=== PATIENT | male | born 1990 | race Caucasian/White ===

== ENCOUNTER 2024-10-28 20:42 | Inpatient (IN) | payer SELFPAY ==
[2024-10-28 20:44] VITALS: BP 107/86; PULSE 134; RESP 18; TEMP 36.4; O2SAT 96; BMI 24.2
--- NOTE | 2024-10-28 21:34 | EDS_ITS ---
HPI HPI - GI History of Present Illness Chief Complaint: Nausea/Vomiting/Diarrhea Informant: patient and spouse/S.O. Narrative Narrative: 34-year-old male has had diarrhea that started yesterday followed by nausea and vomiting today and some low back discomfort, but the symptoms have progressed to the point where he is unable to keep any fluids down and has not urinated today at all, evaluated here 2129. Last urinated last night he states. Subjective fevers but unclear if he had real fevers or not. Sick contacts children with some vomiting and diarrhea this past week but they were not as sick as him. No travel out of the area or suspicious food intake. No recent antibiotics for anything. No history of any abdominal surgeries in the past. PFSH PFSH Medical History no medical history no medical history Home Medications ?Medication ?Instructions ?Recorded ?Last Taken ?Type NK 10/28/24 Unknown History Allergy/AdvReac Type Severity Reaction Status Date / Time No Known Allergies Allergy Verified 10/28/24 20:44 Surgical History no surgical history no surgical history Social History Smoking Status: Unknown if ever smoked ROS ROS ED Constitutional Constitutional ED: Reports chills, fever(s), malaise and subjective Eyes Eyes: Denies change in vision or diplopia ENT ENT ED: Denies rhinorrhea or sore throat Cardiovascular Cardiovascular: Denies chest pain or palpitations Respiratory/Chest Respiratory/Chest: Denies cough or dyspnea Gastrointestinal Gastrointestinal: Reports diarrhea, nausea and vomiting; Denies abdominal pain Genitourinary Genitourinary ED: Denies dysuria or hematuria Musculoskeletal Musculoskeletal: Reports back pain; Denies neck pain Integumentary Denies abscess or rash Neurologic Neurologic: Denies headache(s), paresthesias or weakness EXAM Physical Exam Const Vital Signs: 10/28/24 20:44 Temperature 97.6 F L Temperature Source Oral Pulse Rate 134 H Respiratory Rate 18 Blood Pressure 107/86 H Blood Pressure Mean 93 Pulse Ox 96 Oxygen Delivery Method Room Air Positive well nourished and well developed Constitutional Narrative: Appears ill, no distress General Appearance ED: well developed HEENT Reports dry mucous membranes normocephalic and atraumatic Mouth ED: Yes dry mucous membranes Mouth: dry mucous membranes Eyes PERRL and EOMs intact bilaterally Neck full ROM and supple Resp normal respiratory effort and clear to auscultation bilaterally Cardio regular rate, regular rhythm and no murmurs Rate: tachycardic GI non-tender and non-distended Auscultation: normoactive bowel sounds Palpation: soft Back/Spine no CVA tenderness General Back: other FROM Extremity normal to inspection General Extremety ED: Negative for edema, pulses abnormal or tenderness General Extremity: Negative for edema or pulses abnormal Neuro oriented x3, CN's II-XII intact bilaterally and no sensory deficits noted Sensorium / Orientation: awake and alert Motor Exam: strength 5/5 throughout Skin no rashes or lesions noted and no wounds MDM MDM MDM Narrative Medical decision making narrative: Obtain labs will be treated for symptoms given IV fluids. Is feeling better and wants to drink fluids afterwards, but reviewing the labs I am concerned. He has acute renal failure with a 10:1 ratio ordered last, suggesting this is renal in nature and not dehydration/prerenal, although clinically he also is indeed dehydrated. Therefore this is less likely to be hemolytic uremic syndrome. But given this although we do not have old numbers, I think he should be admitted in case it is related to this infection. He has not been able to provide us with the diarrhea specimen yet as he went here before nursing told him we wanted a specimen. History & Record Review Additional record(s) reviewed:: No prior records Lab Data Attestation: I reviewed the patient's lab results. Labs: Laboratory Results - last 24 hr 10/28/24 21:40 WBC 12.8 H RBC 6.30 H Hgb 19.0 H* Hct 56.5 H MCV 89.7 MCH 30.2 MCHC 33.6 RDW Std Deviation 42.3 RDW Coeff of Mazin 12.9 Plt Count 276 MPV 9.6 Immature Gran % (Auto) 0.400 Neut % (Auto) 88.1 H Lymph % (Auto) 1.7 L [place] % (Auto) 9.2 Eos % (Auto) 0.2 Baso % (Auto) 0.4 Absolute Neuts (auto) 11.3 H Absolute Lymphs (auto) 0.22 L Nucleated RBC % 0 Differential Comment SCANNED Diff Path Review May foll Sodium 135 L Potassium 4.5 Chloride 103 Carbon Dioxide 21.0 Anion Gap 11 BUN 20 H Creatinine 2.94 H Estim Creat Clear Calc 38.49 Est GFR (MDRD) Af Amer 32 L Est GFR (MDRD) Non-Af 26 L BUN/Creatinine Ratio 6.8 L Glucose 176 H Calcium 10.4 H Total Bilirubin 1.30 H AST 19 ALT 35 Alkaline Phosphatase 82 Total Protein 9.0 H Albumin 5.2 H Globulin 3.8 Albumin/Globulin Ratio 1.4 Discharge Plan Triage Chief Complaint: Nausea/Vomiting/Diarrhea ED Provider: Pool Moore Dx/Rx/DC Orders Clinical Impression: Acute renal failure, Gastroenteritis, Acute dehydration Prescriptions: No Action NK Primary Care Provider: Care Physician,No Primary Referrals: Care Physician,No Primary [Primary Care Provider] - Print Language: Luxembourgish Disposition Disposition: [facility]
[2024-10-28] MEDS: Ondansetron 4 MG/2 ML Vial IV (21:43)
[2024-10-28] MEDS: 0.9% Normal Saline (1000mL) 1,000 ML 999 ML IV (21:43)
[2024-10-28 21:45] LABS: Absolute Lymphocyte Count 0.22 X10^3/uL (0.83-4.51); Absolute Neutrophil Count 11.3 X10^3/uL (2.0-7.7); Basophil# 0.05 X10^3/uL; Basophil% 0.4 % (0-1); Eosinophil# 0.03 X10^3/uL; Eosinophils% 0.2 % (0-5); Lymphocyte # 0.22 X10^3/ul (0.83-4.51); Lymphocyte % 1.7 % (19-41); Mean Corp Hgb Conc 33.6 g/dL (32-36); Mean Corpuscular Hgb 30.2 pg (27.0-32.0); Mean Corpuscular Volume 89.7 fL (80-94); Mean Platelet Vol. 9.6 fl (6.2-12.0); Monocyte# 1.18 X10^3/uL; Monocyte% 9.2 % (0-10); NRBC Flagged by Analyzer 0 % (0-5); Neutrophil # 11.26 X10^3/uL (2.7-7.7); Neutrophil % 88.1 % (47-70); POSITIVE DIFFERENTIAL YES; Platelet Count 276 K/mm3 (150-450); RBC Distribution Width CV 12.9 % (11.6-14.6); RBC Distribution Width SD 42.3 fl (35.1-43.9); White Blood Count 12.8 K/mm3 (4.4-11.0)
[2024-10-28 21:50] LABS: Hematocrit 56.5 % (40-54)
[2024-10-28 21:51] LABS: Differential Indicated SCAN CRITERIA MET
[2024-10-28 22:04] LABS: ALB/GLOB Ratio 1.4 RATIO (0.9-2.4); AST(SGOT) 19 U/L (15-37); Alanine Aminotransfer ALT/SGPT 35 U/L (16-61); Albumin, Serum 5.2 g/dL (3.2-5.0); Alkaline Phosphatase 82 U/L (45-117); Anion Gap 11 (5-15); BUN 20 mg/dL (7-18); BUN/Creat Ratio 6.8 RATIO (10-20); Calcium,Total 10.4 mg/dL (8.5-10.1); Chloride 103 mmol/L (98-107); Creatinine, Serum 2.94 mg/dL (0.70-1.30); EST Glomerular Filtration Rate 26 mL/min (>60); Est Glom Filt Rate - Afr Amer 32 mL/min (>60); Estimated Creatinine Clearance 38.49 ml/min; Globulin 3.8 g/dL (2.2-4.2); Glucose 176 mg/dL (74-106); Potassium 4.5 mmol/L (3.5-5.1); Sodium Level 135 mmol/L (136-145)
[2024-10-28 22:15] LABS: Differential Comment SCANNED
--- NOTE | 2024-10-28 22:59 | HP.PCM.HOS_ITS ---
HPI - General General Date of Admission: 10/28/24 Date of Service: 10/28/24 Chief Complaint: Intractable nausea and vomiting/diarrhea HPI Narrative SHAY GRADY, is a 34 M who presented to the emergency department [facility] on 10/28/2024 with a chief complaint of intractable nausea vomiting and diarrhea. He states his symptoms started today this morning. He states since this morning he has not been able to keep down anything and has vomited profusely and had watery stools all day long. He does complain of some of some back pain but denies any significant abdominal pain at this time. He does states that his girlfriend's daughter has been ill with similar symptoms as well. Vital signs on presentation showed temperature 97.6, heart rate 134, blood pressure 107/86, respiratory rate 18 and oxygen saturation is 96% on room air. Chemistry panel shows a leukocytosis that is mild with a white count of 12.8 and a left shift with an 88.1% neutrophilia and a lymphopenia. Hemoglobin is elevated at 19.0. Platelets are normal. Chemistry panel shows a sodium of 135 BUN of 20, serum creatinine of 2.94 with unknown baseline, hyperglycemia with a blood sugar of 176, calcium of 10.4, and a mildly elevated bilirubin at 1.3. Clinically he appears to be markedly dehydrated. Highly suspect viral gastroenteritis but given severe dehydration will admit for IV fluids and antiemetics. [facility] Medical History no medical history no medical history Home Medications ?Medication ?Instructions ?Recorded ?Last Taken ?Type NK 10/28/24 Unknown History Allergy/AdvReac Type Severity Reaction Status Date / Time No Known Allergies Allergy Verified 10/28/24 20:44 no significant family history Surgical History no surgical history no surgical history Social History (Updated 10/29/24 @ 01:[address] Antonia Mckee, DO) household members: significant other housing: house Smoking Status: Never smoker alcohol intake: current alcohol intake frequency: a few times a week substance use type: does not use ROS Constitutional Constitutional: Reports anorexia and weakness; Denies change in weight, chills, fatigue, fever(s), malaise, night sweats or other Eyes Eyes: Denies blurry vision, change in eye color, change in vision, discharge from eye(s), double vision, erythema, eye pain, loss of vision or other ENT HEENT: Denies abnormal hearing, dysphagia, ear pain, epistaxis, headache(s), hearing loss, nasal congestion, nasal discharge, post nasal drip, sinus pressure, sore throat or other Cardiovascular Cardiovascular: Denies chest pain, claudication, dyspnea on exertion, edema, lightheadedness, orthopnea, palpitations, paroxysmal nocturnal dyspnea, rapid heart rate, syncope or other Respiratory/Chest Respiratory/Chest: Denies cough, dyspnea, excessive phlegm production, hemoptysis, productive cough, shortness of breath at rest, shortness of breath with exertion, wheezing or other Gastrointestinal Gastrointestinal: Reports diarrhea, nausea and vomiting; Denies abdominal pain, coffee ground emesis, constipation, dyspepsia, hematemesis, hematochezia, loose stools, melena or other Genitourinary Genitourinary: Reports other Details: Decreased urine output ; Denies burning urination, difficulty urinating, dysuria, hematuria, nocturia, urinary frequency, urinary hesitancy, urinary incontinence or urinary urgency Musculoskeletal Musculoskeletal: Reports back pain; Denies arthralgias, joint pain, joint stiffness, joint swelling, myalgias, neck pain or other Neurologic Neurologic: Denies abnormal gait, abnormal speech, confusion, disequilibrium, dizziness, focal weakness, headache(s), numbness, paresthesias, seizure-like activity, seizures, syncope, tingling, tremor(s) or other Psychiatric Psychiatric: Denies anxiety, depression, homicidal ideation, suicidal ideation or other Endocrine Endocrinology: Denies change in body appearance, cold intolerance, excessive sweating, heat intolerance, polydipsia, polyuria or other Hematologic/Lymphatic Hematologic/Lymphatic: Denies anemia, easy bleeding, easy bruising, lymphadenopathy or other Allergic/Immunologic Allergic/Immunologic: Denies rhinitis, hives, eczemia, asthma or other Vital Signs Vital Signs Vital Signs: 10/28/24 20:44 Temperature 97.6 F L Temperature Source Oral Pulse Rate 134 H Respiratory Rate 18 Blood Pressure 107/86 H Blood Pressure Mean 93 Pulse Ox 96 Oxygen Delivery Method Room Air Weight Weight: 81.057 kg Body Mass Index (BMI) 24.2 Physical Exam Const alert, oriented x3, no apparent distress and average body habitus Constitutional Narrative: Thin, dehydrated appearing, white male, lying in bed, appears mildly uncomfortable but not toxic HEENT normocephalic and head/scalp atraumatic HEENT Narrative: Mucous membranes are markedly dry, Mallampati is 2, no thrush Resp normal respiratory effort, no retractions, no use of accessory muscles and clear to auscultation bilaterally Auscultation: Negative for rales, rhonchi or wheezes Cardio regular rhythm, S1 normal heart sound, S2 normal heart sound, no murmurs, no rub, no gallops and no clicks Cardio Narrative: Sinus tachycardia GI GI Narrative: Mild tenderness diffusely, abdomen is soft and nondistended, bowel sounds are hyperactive Extremity no clubbing, cyanosis or edema Extremity Narrative: Pedal and radial pulses are 2+ Neuro oriented x3, moves all extremities and no focal motor deficits Speech: speech normal Psych Psych Narrative: Affect is slightly flat but eye contact is good and patient interacts and answers questions appropriately Results Lab / Micro Data 10/28/24 21:40 10/28/24 21:40 Labs: Laboratory Results - last 24 hr 10/28/24 21:40: WBC 12.8 H, RBC 6.30 H, Hgb 19.0 H*, Hct 56.5 H, MCV 89.7, MCH 30.2, MCHC 33.6, RDW Std Deviation 42.3, RDW Coeff of Mazin 12.9, Plt Count 276, MPV 9.6, Immature Gran % (Auto) 0.400, Neut % (Auto) 88.1 H, Lymph % (Auto) 1.7 L, [place] % (Auto) 9.2, Eos % (Auto) 0.2, Baso % (Auto) 0.4, Absolute Neuts (auto) 11.3 H, Absolute Lymphs (auto) 0.22 L, Nucleated RBC % 0, Differential Comment SCANNED, Diff Path Review February, Sodium 135 L, Potassium 4.5, Chloride 103, Carbon Dioxide 21.0, Anion Gap 11, BUN 20 H, Creatinine 2.94 H, Estim Creat Clear Calc 38.49, Est GFR (MDRD) Af Amer 32 L, Est GFR (MDRD) Non-Af 26 L, B UN/Creatinine Ratio 6.8 L, Glucose 176 H, Calcium 10.4 H, Total Bilirubin 1.30 H , AST 19, ALT 35, Alkaline Phosphatase 82, Total Protein 9.0 H, Albumin 5.2 H, Globulin 3.8, Albumin/Globulin Ratio 1.4 Assessment & Plan Assessment/Plan (1) Acute dehydration: (2) Gastroenteritis: (3) Elevated serum creatinine: PLAN: Plan Intractable nausea vomiting secondary to suspected viral gastroenteritis -Stool studies pending for enteric panel -C. difficile pending -Stool lactoferrin pending -Aggressive IV fluids -Antiemetics as needed -As needed pain medication -Clear liquid diet and advance as tolerated Elevated serum creatinine secondary to acute dehydration -Serum creatinine 2.94 on presentation -Baseline is unknown -Highly suspect patient has MODESTO -Decreased urine output -Aggressive IV fluids -Avoid nephrotoxins -UA and urine sodium is pending -If these are not consistent with prerenal azotemia will order further workup and Vasques catheter placement Erythrocytosis -Highly suspect related to dehydration -Repeat in a.m. Hypocalcemia -Highly suspect related to dehydration -Repeat in a.m. Tachycardia -Suspect related to volume depletion -Seems to be trending down with IV fluids -continue to monitor Alcohol abuse -Patient does not drink daily but states he drinks heavy on weekends -Monitor clinically -Patient denies ever having withdrawal DVT prophylaxis -subcu heparin twice daily CODE STATUS Full code Charges/Coding Visit Charges Inpatient E&M: 59109 Init Hosp L2
[2024-10-29 00:01] VITALS: BMI 24.0
[2024-10-29 00:07] VITALS: BP 152/87; PULSE 104; RESP 16; TEMP 36.9; O2SAT 98
[2024-10-29] MEDS: 0.9% Normal Saline (1000mL) 1,000 ML 200 ML IV ×3 (00:11→10:27)
[2024-10-29] MEDS: Acetaminophen 325 MG Tablet 650 MG PO ×3 (00:15→21:46)
[2024-10-29 02:03] VITALS: BMI 24.0
[2024-10-29 03:41] VITALS: BP 128/84; PULSE 86; RESP 17; TEMP 37; O2SAT 98
[2024-10-29 03:53] LABS: Mucous, Urine 0 SEEN /hpf (<or=2+)
[2024-10-29 03:59] LABS: Color, Urine Yellow (Yellow); Glucose, Dipstick Normal (Normal); Ketone-Dipstick 5 mg/dl (Negative); Leukocyte Esterase-Dipstick 25 /ul (Negative); Nitrite-Dipstick Negative (Negative); Occult Blood-Urine 10 /ul (Negative); Protein-Dipstick 100 mg/dl (Negative); Urine Clarity Cloudy (Clear); Urine Urobilinogen 1 mg/dl (Normal)
[2024-10-29 04:08] LABS: Urine Sodium 22 mmol/L (Not Establ.)
[2024-10-29 04:12] LABS: Bacteria RARE /hpf (None Seen); Red Blood Cells-Urine 0-5 SEEN /hpf (0-5); Squamous Epithelial Cells - UA 0 SEEN /hpf (0-5); Urine Bilirubin Dipstick 1 mg/dL (Negative); White Blood Cells 5-10 SEEN /hpf (0-5)
[2024-10-29 04:13] LABS: Calcium Oxalate Crystals Ur 1+ /hpf (<or=2+); Hyaline Cast 10-25 SEEN /lpf (0-5)
[2024-10-29 06:29] LABS: Absolute Lymphocyte Count 0.31 X10^3/uL (0.83-4.51); Absolute Neutrophil Count 9.2 X10^3/uL (2.0-7.7); Basophil# 0.02 X10^3/uL; Basophil% 0.2 % (0-1); Eosinophil# 0.01 X10^3/uL; Eosinophils% 0.1 % (0-5); Hematocrit 44.8 % (40-54); Hemoglobin 15.4 g/dL (13.0-16.5); Lymphocyte # 0.31 X10^3/ul (0.83-4.51); Mean Corp Hgb Conc 34.4 g/dL (32-36); Mean Corpuscular Hgb 30.7 pg (27.0-32.0); Mean Corpuscular Volume 89.4 fL (80-94); Mean Platelet Vol. 9.8 fl (6.2-12.0); Monocyte# 0.65 X10^3/uL; Monocyte% 6.4 % (0-10); NRBC Flagged by Analyzer 0 % (0-5); Neutrophil # 9.19 X10^3/uL (2.7-7.7); POSITIVE DIFFERENTIAL YES; Platelet Count 219 K/mm3 (150-450); RBC Distribution Width CV 13.2 % (11.6-14.6); RBC Distribution Width SD 42.8 fl (35.1-43.9); Red Blood Count 5.01 M/mm3 (4.6-6.2); White Blood Count 10.2 K/mm3 (4.4-11.0)
[2024-10-29 07:06] LABS: ALB/GLOB Ratio 1.1 RATIO (0.9-2.4); AST(SGOT) 23 U/L (15-37); Alanine Aminotransfer ALT/SGPT 32 U/L (16-61); Albumin, Serum 3.5 g/dL (3.2-5.0); Alkaline Phosphatase 53 U/L (45-117); Anion Gap 8 (5-15); BUN 25 mg/dL (7-18); Chloride 106 mmol/L (98-107); Creatinine, Serum 2.28 mg/dL (0.70-1.30); EST Glomerular Filtration Rate 35 mL/min (>60); Est Glom Filt Rate - Afr Amer 42 mL/min (>60); Estimated Creatinine Clearance 49.63 ml/min; Globulin 3.2 g/dL (2.2-4.2); Glucose 135 mg/dL (74-106); Magnesium 1.8 mg/dL (1.6-2.6); Phosphorus 4.6 mg/dL (2.5-4.9); Potassium 4.5 mmol/L (3.5-5.1); Protein, Total 6.7 g/dL (6.4-8.2); Sodium Level 134 mmol/L (136-145)
[2024-10-29 07:59] VITALS: BP 129/77; PULSE 79; RESP 18; TEMP 37.1; O2SAT 95
[2024-10-29 13:14] LABS: Pathologist Review Reviewed
--- NOTE | 2024-10-29 13:48 | CASEMGMT ---
Social Work- SW met with pt to discuss self pay status. SW introduced self and role. Pt girlfriend present; pt agreeable to girlfriend remaining in the room. Pt reports that he recently moved to [email or web address] from [place] approximately one month ago. Pt reportedly had RICARDA prior to moving, but did not renew andtherefore there was a lapse in coverage. Pt is working now. Pt met with Johnathan Serrano,via telephone earlier today and does not currently qulaify for RICARDA due to new job. Pt will qualify for HCAP. SW had pt sign HCAP form and emailed it to [employer]. SW also provided printed information on [place] and [employer] card. Pt reports no other needs at this time. BERE Kennedy
--- NOTE | 2024-10-29 13:55 | PN_ITS ---
Subjective Subjective Patient seen and examined. His girlfriend was by his bedside. He said his diarrhea was improving as well as the nausea and vomiting. Review of systems otherwise negative. He did test positive for norovirus. Objective Data Objective Data Vital Signs: Vital Signs Temp Pulse Resp BP Pulse Ox O2 Del Method 98.8 F 79 18 129/77 H 95 Room Air 10/29/24 07:59 10/29/24 07:59 10/29/24 07:59 10/29/24 07:59 10/29/24 07:59 10/29/24 08:00 Oxygen Delivery Method Room Air Weight: 176 lb 12.972 oz Body Mass Index (BMI) 24.0 Intake & Output: Intake and Output for Last 24 Hours 10/27/24 10/28/24 10/29/24 23:59 23:59 23:59 Intake Total 1000 / 1000 2240 / 2240 Output Total 300 / 300 Balance 1000 / 1000 1940 / 1940 Lab / Micro Data 10/29/24 06:12 10/29/24 06:12 Labs: Laboratory Results - last 24 hr 10/28/24 21:40: WBC 12.8 H, RBC 6.30 H, Hgb 19.0 H*, Hct 56.5 H, MCV 89.7, MCH 30.2, MCHC 33.6, RDW Std Deviation 42.3, RDW Coeff of Mazin 12.9, Plt Count 276, MPV 9.6, Immature Gran % (Auto) 0.400, Neut % (Auto) 88.1 H, Lymph % (Auto) 1.7 L, [place] % (Auto) 9.2, Eos % (Auto) 0.2, Baso % (Auto) 0.4, Absolute Neuts (auto) 11.3 H, Absolute Lymphs (auto) 0.22 L, Nucleated RBC % 0, Differential Comment SCANNED, Diff Path Review Reviewed, Sodium 135 L, Potassium 4.5, Chloride 103, Carbon Dioxide 21.0, Anion Gap 11, BUN 20 H, Creatinine 2.94 H, Estim Creat Clear Calc 38.49, Est GFR (MDRD) Af Amer 32 L, Est GFR (MDRD) Non-Af 26 L, B UN/Creatinine Ratio 6.8 L, Glucose 176 H, Calcium 10.4 H, Total Bilirubin 1.30 H , AST 19, ALT 35, Alkaline Phosphatase 82, Total Protein 9.0 H, Albumin 5.2 H, Globulin 3.8, Albumin/Globulin Ratio 1.4 10/29/24 03:39: Urine Color Yellow, Urine Clarity Cloudy, Urine pH 5.0, Ur Specific [place] 1.030, Urine Protein 100 H, Urine Glucose (UA) Normal, Urine Ketones 5 H, Urine Occult Blood 10 H, Urine Nitrite Negative, Urine Bilirubin 1 H, Urine Urobilinogen 1 H, Ur Leukocyte Esterase 25 H, Urine RBC 0-5 SEEN, Urine WBC 5-10 SEEN, Ur Squamous Epith Cells 0 SEEN, Calcium Oxalate Crystal 1+, Urine Bacteria RARE, Hyaline Casts 10-25 SEEN, Urine Mucus 0 SEEN, Ur Random Sodium 22 10/29/24 06:12: WBC 10.2, RBC 5.01, Hgb 15.4, Hct 44.8, MCV 89.4, MCH 30.7, MCHC 34.4, RDW Std Deviation 42.8, RDW Coeff of Mazin 13.2, Plt Count 219, MPV 9.8, Immature Gran % (Auto) 0.300, Neut % (Auto) 90.0 H, Lymph % (Auto) 3.0 L, [place] % (Auto) 6.4, Eos % (Auto) 0.1, Baso % (Auto) 0.2, Absolute Neuts (auto) 9.2 H, A bsolute Lymphs (auto) 0.31 L, Nucleated RBC % 0, Sodium 134 L, Potassium 4.5, Chloride 106, Carbon Dioxide 20.0 L, Anion Gap 8, BUN 25 H, Creatinine 2.28 H, Estim Creat Clear Calc 49.63, Est GFR (MDRD) Af Amer 42 L, Est GFR (MDRD) Non-Af 35 L, BUN/Creatinine Ratio 11.0, Glucose 135 H, Calcium 8.0 L, Phosphorus 4.6, Magnesium 1.8, Total Bilirubin 0.70, AST 23, ALT 32, Alkaline Phosphatase 53, Total Protein 6.7, Albumin 3.5, Globulin 3.2, Albumin/Globulin Ratio 1.1 Micro: Microbiology 10/29/24 03:39 Stool Stool Lactoferrin - Final 10/29/24 03:39 Stool Enteric Bacteriology - Final Norovirus 10/29/24 03:39 Stool Clostridioides difficile (PCR) - Final Physical Exam Const alert, oriented x3, no apparent distress and well nourished General Appearance: cooperative HEENT normocephalic, head/scalp atraumatic, moist oral mucous membranes and oropharynx normal Eyes PERRL and EOMs intact bilaterally Neck no lymphadenopathy, supple and no JVD Lymph Lymphatic: no lymphadenopathy noted and no lymphedema noted Resp normal respiratory effort, normal air movement and clear to auscultation bilaterally Cardio regular rate, regular rhythm, S1 normal heart sound, S2 normal heart sound and no murmurs GI normal to inspection, nondistended, normoactive bowel sounds, soft to palpation, non-tender and non-distended Extremity normal capillary refill, no clubbing, cyanosis or edema and no calf tenderness General Extremity: no tenderness to palpation of joints or extremities Skin General Skin Exam: no breakdown Neuro CN's II-XII intact bilaterally, no focal motor deficits and no sensory deficits noted Motor Exam: strength 5/5 throughout and general weakness Psych thought process normal, cooperative and affect normal Appearance: appropriate Assessment & Plan Assessment/Plan (1) Gastroenteritis: (2) Acute dehydration: (3) Elevated serum creatinine: PLAN: Plan #Acute gastroenteritis due to norovirus infection * he says the diarrhea is improving as well as the nausea and vomiting * Stool for enteric panel came back positive for norovirus C. difficile was negative. Continue supportive treatment with hydration * With IV fluids * Patient also admits to smoking marijuana though he states he is cutting down. Patient counseled on marijuana can contribute to vomiting also. * IV zofran prn * advance diet as tolerated * #MODESTO * Creatinine was 2.94 on admission and is now down to 2.28. * Continue hydration with IV fluids in light of MODESTO * Continue trending creatinine #History of alcohol use disorder: * Says he binge drinks on the weekends. * No evidence of withdrawal. * Continue to monitor for withdrawal #DVT prophylaxis: Lovenox * # Charges/Coding Visit Charges Inpatient E&M: 25939 Subs Hosp L2
--- NOTE | 2024-10-29 14:15 | CASEMGMT ---
RN CM RAIL OPERATIONS CONTROLLER CM?to room to meet with patient for initial transition planning/care coordination assessment. RN CM?introduced self and role at [facility]. Pt voices understanding and consents to assessment?at this time. Pt resting in bed in no distress at this time. Pt is A/O at this time and answers all questions appropriately. Sig other, Fang, @ bedside and pt agreeable to her being present during assessment. Care providers, pharmacy, and demographics verified/updated at this time. Strata:?1 PCP: No PCP. Pt has been provided w/Anne Marie Mustafaman info by and also given local PCP directory. Specialists: none Preferred Pharmacy: [facility] [place] Insurance: none. Prescription Benefit: none Living Will/HPOA: Pt does not currently have LW/HCPOA and declines info at this time. Pt and Fang made aware of his father (and then sister), d/t are LNOK's, would be medical decision maker if pt unable to, unless HCPOA completed. Pt made aware that he can contact as an out-pt and make appt in the future if he decides he would like to talk with someone about this or would like to utilize [facility] social work for advanced directive completion. Fang did ask for POA documents to take home in the event pt wishes to complete on his own. These were provided at this time. LNOK: Father is living. Mother is . Has one sister. Sig other, Fang, is only contact listed. Living Arrangements: Lives w/sig bebeto, Fang, and her 2 children. Pt is independent. Transportation:?Pt states drives self and states no transportation concerns at this time. Fang also drives. DME: Denies using any DME and denies needs. HHC/SNF: No hx of either. No needs identified. Pt wishes to return home and states has no concerns with going home at time of discharge. CM?to follow for any further discharge planning/needs. Pt and Fang voice no further concerns/needs at this time. PLAN: Home [facility] AN RN, CM
[2024-10-29 14:43] VITALS: BP 135/74; PULSE 77; RESP 16; TEMP 36.6; O2SAT 99
[2024-10-29 14:45] VITALS: O2SAT 99
[2024-10-29] MEDS: 0.9% Saline Lock 10 ML Syringe IV (14:45)
[2024-10-29] MEDS: 0.9% Normal Saline (1000mL) 1,000 ML 125 ML IV (16:35)
[2024-10-29 21:50] VITALS: BP 130/74; PULSE 78; RESP 16; TEMP 36.9; O2SAT 97
[2024-10-30 03:55] VITALS: BP 134/78; PULSE 72; RESP 16; TEMP 36.8; O2SAT 98
[2024-10-30 06:00] VITALS: BMI 25.2
[2024-10-30 06:48] LABS: Absolute Neutrophil Count 3.2 X10^3/uL (2.0-7.7); Basophil# 0.02 X10^3/uL; Basophil% 0.4 % (0-1); Eosinophils% 3.6 % (0-5); Hematocrit 41.6 % (40-54); Hemoglobin 13.8 g/dL (13.0-16.5); Lymphocyte % 25.5 % (19-41); Mean Corp Hgb Conc 33.2 g/dL (32-36); Mean Corpuscular Hgb 29.9 pg (27.0-32.0); Mean Platelet Vol. 9.7 fl (6.2-12.0); Monocyte# 0.62 X10^3/uL; Monocyte% 11.3 % (0-10); NRBC Flagged by Analyzer 0 % (0-5); Neutrophil # 3.23 X10^3/uL (2.7-7.7); Neutrophil % 58.8 % (47-70); Platelet Count 178 K/mm3 (150-450); RBC Distribution Width SD 42.7 fl (35.1-43.9); Red Blood Count 4.62 M/mm3 (4.6-6.2); White Blood Count 5.5 K/mm3 (4.4-11.0)
[2024-10-30 07:10] LABS: Anion Gap 4 (5-15); BUN 14 mg/dL (7-18); Calcium,Total 7.7 mg/dL (8.5-10.1); Chloride 112 mmol/L (98-107); Creatinine, Serum 1.17 mg/dL (0.70-1.30); EST Glomerular Filtration Rate 75 mL/min (>60); Est Glom Filt Rate - Afr Amer 91 mL/min (>60); Estimated Creatinine Clearance 96.72 ml/min; Glucose 119 mg/dL (74-106); Potassium 3.9 mmol/L (3.5-5.1); Sodium Level 139 mmol/L (136-145)
[2024-10-30 08:12] VITALS: O2SAT 96
[2024-10-30 08:18] VITALS: BP 133/75; PULSE 68; RESP 16; TEMP 36.2; O2SAT 97
--- NOTE | 2024-10-30 11:13 | DCINST_ITS ---
Discharge Instructions Diet Discharge Diet: Low fat / Low cholesterol DC O2, CPAP, BIPAP needs Home O2 Discharge instructions: No Dressing / Incision Discharge Activity: Return to Normal Activity Weight Bearing Status: Weight bearing as tolerated Dressing / Incision Call your doctor if you observe: Fever of 101 or Higher, Shortness of breath, Dizziness, Swelling in the ankles and Chest pain Follow Up Care Test Results: Test results from this visit will be discussed in further detail at your follow- up appointment, if applicable. Discharge Plan Admission Admit Date/Time: 10/28/24 23:07 Primary Reason for Your Visit: acute viral gastroenteritis due to norovirus Attending Provider: Anita Gonzalez Primary Care Provider: Care Physician,No Primary Consulting Providers: Antonia Mckee Discharge Orders/Prescriptions Prescriptions: No Action NK Referrals / Follow Up: Hero Tinoco MD [Med Staff - Active Staff] - Within 2 Weeks (see to establish PCP care) Care Physician,No Primary [Primary Care Provider] - Disposition Disposition (needs filled in before D/C Order can be placed): Home, Self Care
--- NOTE | 2024-10-30 11:16 | DS.PCM_ITS ---
Providers Date of Admission: 10/28/24 Date of Discharge: 10/30/24 Primary Care Physician: No Primary Care Phys Reason For Visit: MODESTO 2/2 INTRACTABLE N/V/D Diagnosis Discharge Diagnosis (1) Gastroenteritis: Status: Acute Code(s): K52.9 - Noninfective gastroenteritis and colitis, unspecified (2) Acute dehydration: Status: Acute Code(s): E86.0 - Dehydration (3) Elevated serum creatinine: Status: Acute Code(s): R79.89 - Other specified abnormal findings of blood chemistry Plan #Acute gastroenteritis due to norovirus infection * he says the diarrhea is improving as well as the nausea and vomiting * Stool for enteric panel came back positive for norovirus C. difficile was negative. Continue supportive treatment with hydration * With IV fluids * Patient also admits to smoking marijuana though he states he is cutting down. Patient counseled on marijuana can contribute to vomiting also. * IV zofran prn * advance diet as tolerated * #MODESTO * Creatinine was 2.94 on admission and is now down to 2.28. * Continue hydration with IV fluids in light of MODESTO * Continue trending creatinine #History of alcohol use disorder: * Says he binge drinks on the weekends. * No evidence of withdrawal. * Continue to monitor for withdrawal #DVT prophylaxis: Lovenox * # Medications at Discharge Home Medications NK 10/28/24 Hospital Course Operations None Procedures None Summary of Care Provided Minutes Spent on Discharge: 37 Hospital Course: Patient is a 34-year-old male with past medical history as outlined was admitted to the ED on 10/28/2024 with complaint of intractable nausea and vomiting as well as diarrhea. His symptoms have started on the morning of admission. He had not been able to keep anything down and had vomited profusely and had multiple watery stools. He said he eats the same food as his girlfriend who he lives with but she was not having any such symptoms. Labs were significant for WBC of 12.8 and creatinine was 2.941. Calcium was 10.4 and bilirubin was mildly elevated at 1.3. He was admitted and managed for dehydration and MODESTO due to acute gastroenteritis. C. difficile test was negative and enteric panel was positive for norovirus. His creatinine did improve with hydration. Patient subsequently felt much better and his diarrhea and vomiting improved. He was able to tolerate a diet. He was discharged on 10/30/2024. He is follow-up with his primary care doctor within 1 to 2 weeks. Patient seen and examined prior to discharge. He had no active complaints. He felt much better and was looking forward to be discharged. Review of systems otherwise negative. Labs and vitals reviewed. Home medication reviewed and reconciled. Physical Exam Const alert, oriented x3, no apparent distress, average body habitus and well nourished General Appearance: cooperative HEENT normocephalic, head/scalp atraumatic, moist oral mucous membranes and oropharynx normal Mouth: oral and palatal mucosa normal Eyes PERRL and EOMs intact bilaterally Neck no lymphadenopathy, supple and no JVD Lymph Lymphatic: no lymphadenopathy noted and no lymphedema noted Resp normal respiratory effort, normal air movement, no retractions, no use of accessory muscles and clear to auscultation bilaterally Auscultation: Negative for rales, rhonchi or wheezes Cardio regular rate, regular rhythm, S1 normal heart sound, S2 normal heart sound, no murmurs, no rub, no gallops and no clicks GI normal to inspection, nondistended, normoactive bowel sounds, soft to palpation, non-tender and non-distended Extremity normal to inspection, normal capillary refill, no clubbing, cyanosis or edema and no calf tenderness Extremity Narrative: Pedal and radial pulses are 2+ General Extremity: no tenderness to palpation of joints or extremities Skin General Skin Exam: no breakdown Neuro oriented x3, CN's II-XII intact bilaterally, moves all extremities, no focal motor deficits and no sensory deficits noted Speech: speech normal Motor Exam: strength 5/5 throughout and general weakness Psych thought process normal, cooperative and affect normal Appearance: appropriate Weight / BMI Weight Weight: 186 lb 1.122 oz Body Mass Index (BMI) 25.2 ABG / Lab / Microbiology Data 10/30/24 06:27 10/30/24 06:27 Laboratory: Laboratory Results - last 24 hr 10/30/24 06:27: WBC 5.5, RBC 4.62, Hgb 13.8, Hct 41.6, MCV 90.0, MCH 29.9, MCHC 33.2, RDW Std Deviation 42.7, RDW Coeff of Mazin 13.0, Plt Count 178, MPV 9.7, Immature Gran % (Auto) 0.400, Neut % (Auto) 58.8, Lymph % (Auto) 25.5, [place] % (Auto) 11.3 H, Eos % (Auto) 3.6, Baso % (Auto) 0.4, Absolute Neuts (auto) 3.2, Absolute Lymphs (auto) 1.40, Nucleated RBC % 0, Sodium 139, Potassium 3.9, C hloride 112 H, Carbon Dioxide 23.0, Anion Gap 4 L, BUN 14, Creatinine 1.17, Estim Creat Clear Calc 96.72, Est GFR (MDRD) Af Amer 91, Est GFR (MDRD) Non-Af 75, BUN/Creatinine Ratio 12.0, Glucose 119 H, Calcium 7.7 L Microbiology: Microbiology 10/29/24 03:39 Stool Stool Lactoferrin - Final 10/29/24 03:39 Stool Enteric Bacteriology - Final Norovirus 10/29/24 03:39 Stool Clostridioides difficile (PCR) - Final D/C Instructions Discharge Diet: Low fat / Low cholesterol Discharge Activity: Return to Normal Activity Weight Bearing Status: Weight bearing as tolerated Call your doctor if you observe: Fever of 101 or Higher, Shortness of breath, Dizziness, Swelling in the ankles and Chest pain DC O2, CPAP, BIPAP Needs Home O2 Discharge instructions: No Meaningful Use Info Meaningful Use Meaningful Use Diagnoses (Choose all that apply): None applicable Ischemic Stroke Statin Dosing Therapy Reference: STATIN DOSE THERAPY REFERENCE: * Patients > 75 years receive moderate or high dose statin therapy. * Patients 75 years or YOUNGER should receive HIGH intensity statin dose unless contraindicated. You will be required to document reason for non-treatment if statin daily dose does not meet guidelines. HIGH DOSE STATIN THERAPY DAILY Atorvastatin > than or = to 40 mg Rosuvastatin > than or = to 20 mg Amlodipine + Atorvastatin > than or = to 2.5/40 mg Ezetimibe + Simvastatin 10/80 mg Simvastatin 80mg Discharge Plan Admission Admit Date/Time: 10/28/24 23:07 Primary Reason for Your Visit: acute viral gastroenteritis due to norovirus Attending Provider: Anita Gonzalez Primary Care Provider: Care Physician,No Primary Consulting Providers: Antonia Mckee Discharge Orders/Prescriptions Prescriptions: No Action NK Referrals / Follow Up: Hero Tinoco MD [Med Staff - Active Staff] - Within 2 Weeks (see to establish PCP care) Care Physician,No Primary [Primary Care Provider] - Disposition Disposition (needs filled in before D/C Order can be placed): Home, Self Care Charges/Coding Visit Charges Inpatient E&M: 38443 Disch Hosp >30min
[2024-10-30 11:59] VITALS: BP 146/91; PULSE 70; RESP 16; TEMP 36.3; O2SAT 99
== END 2024-10-30 12:05 | disposition home or self-care (01) | DRG 392 ==
LOC: ED 23:09 → MS3 23:30
PROVIDERS: Admitting Provider Internal Medicine; Emergency Provider Emergency Medicine; Referring Provider Emergency Medicine; Visit Provider Student in an Organized Health Care Education/Training Program
DX: A08.11 Acute gastroenteropathy due to Norwalk agent (principal); N17.9 Acute kidney failure, unspecified; E83.51 Hypocalcemia; F10.10 Alcohol abuse, uncomplicated; E86.0 Dehydration; D75.1 Secondary polycythemia; R00.0 Tachycardia, unspecified
CPT/HCPCS: 36415; 80048; 80053; 81001; 83630; 83735; 84100; 84300; 85025; 87493; 87506; 94668; 99284; 99406; A4216; J2405

== ENCOUNTER 2024-11-11 16:02 | Emergency (ER) | payer SELFPAY ==
[2024-11-11 16:03] VITALS: BP 143/92; PULSE 100; RESP 16; TEMP 36.3; O2SAT 98; BMI 25.4
[2024-11-11] MEDS: 0.9% Normal Saline (1000mL) 1,000 ML 1000 ML IV (16:29)
--- NOTE | 2024-11-11 16:29 | EDS_ITS ---
HPI History of Present Illness Chief Complaint: Complaint Detail of Chief Complaint: Bilateral kidney pain Informant: patient Onset/Context/Timing Onset: Today (Suddenly while bending over at work.) Context: Sudden Onset Timing: Continuous Quality: Pain Location: Patient points to the left and right paralumbar region. Current Severity: Mild Maximum Severity: Moderate Worsened by: Certain movements Relieved by: Nothing Associated Symptoms Associated Symptoms: HPI narrative Narrative Narrative: Patient is a 34-year-old male with no stomach past medical history. He believes he has kidney problems due to the norovirus he was diagnosed with earlier this month. He does endorse thirst and dry mouth. He states he cannot drink enough fluids. He also endorses urinating a lot and waking up in the middle night to urinate. He states that multiple family numbers have diabetes. He denies fever, chills night sweats. There is no history of direct or indirect trauma to the back. He denies bowel or bladder dysfunction. No saddle paresthesia or anesthesia. He denies radicular pain. He denies foot drop. He has no history of vascular issues or symptoms of claudication. Patient denies fever, chills night sweats. Patient denies headache, visual, ocular auditory symptoms. Prior similar symptoms: No Recent Illness/Hospitalization: No [facility] Medical History (Updated 11/11/24 @ 18:[address] Albaro Ospina MD) Norovirus Home Medications ?Medication ?Instructions ?Recorded ?Last Taken ?Type NK 10/28/24 Unknown History Allergy/AdvReac Type Severity Reaction Status Date / Time No Known Allergies Allergy Verified 11/11/24 16:05 Social History household members: significant other housing: house Smoking Status: Never smoker alcohol intake: current alcohol intake frequency: a few times a week substance use type: does not use ROS ROS ED Constitutional Constitutional ED: Denies chills, fever(s), subjective or sweats Eyes Eyes: Denies blurry vision, change in vision or diplopia ENT ENT ED: Denies rhinorrhea or sore throat Cardiovascular Cardiovascular: Denies chest pain or palpitations Respiratory/Chest Respiratory/Chest: Denies cough, dyspnea or dyspnea on exertion Gastrointestinal Gastrointestinal: Denies abdominal pain, nausea or vomiting Genitourinary Genitourinary ED: Reports urinary frequency; Denies dysuria or hematuria Musculoskeletal Musculoskeletal: Reports back pain; Denies arthralgias or myalgias Integumentary Denies rash Neurologic Neurologic: Denies headache(s) or paresthesias Endocrine Endocrinology: Reports polydipsia and polyuria Hematologic/Lymphatic Hematologic/Lymphatic: Reports systems reviewed and no addt'l complaints, except as documented EXAM Physical Exam Const Vital Signs: 11/11/24 16:03 11/11/24 18:02 Temperature 97.4 F L Temperature Source Oral Pulse Rate 100 80 Respiratory Rate 16 17 Blood Pressure 143/92 H 139/83 H Blood Pressure Mean 109 101 Pulse Ox 98 98 Oxygen Delivery Method Room Air Room Air Positive well nourished and well developed General Appearance ED: well developed and NAD; Negative for pallor HEENT Reports dry mucous membranes HEENT Narrative: Head is atraumatic and normocephalic. Ears normal. Nares patent. Posterior pharynx is normal. Mouth ED: Yes dry mucous membranes Mouth: dry mucous membranes Eyes PERRL and EOMs intact bilaterally General Eye ED: Negative for pale conjunctiva or scleral icterus Neck no lymphadenopathy, supple and no JVD Resp normal respiratory effort and clear to auscultation bilaterally Cardio regular rate, regular rhythm, S1 normal heart sound, S2 normal heart sound and no murmurs GI normal to inspection, nondistended, normoactive bowel sounds, non-tender, non- distended and no masses; Negative for hepatosplenomegaly Auscultation: hypoactive bowel sounds Palpation: soft Back/Spine no CVA tenderness Back/Spine Narrative: Bilateral paralumbar discomfort to palpation. Patient moves quite frequently. Lumbar Spine / Lower Back: Negative for lumbar spinal tenderness Neuro oriented x3 and CN's II-XII intact bilaterally Sensorium / Orientation: alert Psych mental status grossly normal Skin no rashes or lesions noted, no wounds and skin turgor normal General Skin Exam: Negative for jaundice or pallor MDM MDM MDM Narrative Medical decision making narrative: With polyuria, polydipsia nocturia strong family history of diabetes and symptoms terms of hypoglycemia per sometimes will obtain BGT. Because patient states he is having difficulty urinating will obtain BMP to assess BUN to creatinine ratio as renal renal function. UA was obtained because triage put that there is concern for infection. This also will measure his specific gravity and if he has ketones noted. History & Record Review Additional record(s) reviewed:: Prior inpatient record (Patient was admitted for dehydration October 30 of this year. He was in the hospital for total of 2 days.), Prior ED visit and Prior labs Lab Data Attestation: I reviewed the patient's lab results. Lab results narrative: Basic metabolic panel is normal. BGT was normal. This rules out diabetes as a cause of his polydipsia and polyuria and nocturia. Patient metabolic panel normal. Urinalysis normal. Labs: Laboratory Results - last 24 hr 11/11/24 11/11/24 11/11/24 16:20 16:24 16:27 Sodium 140 Potassium 4.1 Chloride 104 Carbon Dioxide 30.0 Anion Gap 6 BUN 13 Creatinine 1.02 Estim Creat Clear Calc 110.95 Est GFR (MDRD) Af Amer 107 Est GFR (MDRD) Non-Af 88 BUN/Creatinine Ratio 12.7 Glucose 98 Calcium 8.7 Urine Color Yellow Urine Clarity Sl. 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 He was informed in my opinion this is muscular pain. Ice anti-inflammatory. He asked to have a note indicating he was here since he came from work. Discharge Plan Triage Chief Complaint: Complaint ED Provider: Albaro Ospina Dx/Rx/DC Orders Clinical Impression: Acute lumbar myofascial strain, Polydipsia, Polyuria, Elevated blood pressure reading in office with white coat syndrome, without diagnosis of hypertension Instructions: ED Back Sprain/Strain, ED Hypertension, To Be Confirmed Prescriptions: No Action NK Stand Alone Forms: ED Work / School Excuse Primary Care Provider: Care Physician,No Primary Referrals: Care Physician,No Primary [Primary Care Provider] - Activity Restrictions/Additional Instructions: 1. Apply ice to your lower back 6 times a day 2. You may take either 4 ibuprofen tablets every 8 hours or 2 Aleve tablets every 12 hours for next 3 to 5 days. 3. If you continue to have pain recommend following up at the [facility] clinic. 4. Recommend follow-up at the clinic to have your blood pressure rechecked in 1 to 2 weeks since it is elevated. Print Language: [place] Disposition Disposition: Home, Self Care
[2024-11-11 16:44] LABS: Bedside Glucose 93 mg/dL (74-106)
[2024-11-11 16:51] LABS: Anion Gap 6 (5-15); BUN 13 mg/dL (7-18); BUN/Creat Ratio 12.7 RATIO (10-20); Calcium,Total 8.7 mg/dL (8.5-10.1); Chloride 104 mmol/L (98-107); Creatinine, Serum 1.02 mg/dL (0.70-1.30); EST Glomerular Filtration Rate 88 mL/min (>60); Est Glom Filt Rate - Afr Amer 107 mL/min (>60); Estimated Creatinine Clearance 110.95 ml/min; Glucose 98 mg/dL (74-106); Potassium 4.1 mmol/L (3.5-5.1); Sodium Level 140 mmol/L (136-145)
[2024-11-11 17:23] LABS: Bacteria 0 SEEN /hpf (None Seen); Color, Urine Yellow (Yellow); Glucose, Dipstick Normal (Normal); Ketone-Dipstick Negative (Negative); Leukocyte Esterase-Dipstick 25 /ul (Negative); Mucous, Urine 0 SEEN /hpf (<or=2+); Nitrite-Dipstick Negative (Negative); Occult Blood-Urine Negative /ul (Negative); Protein-Dipstick Negative (Negative); Red Blood Cells-Urine 0 SEEN /hpf (0-5); Urine Bilirubin Dipstick Negative (Negative); Urine Clarity Sl. Cloudy (Clear); Urine Urobilinogen Normal (Normal)
[2024-11-11 18:02] VITALS: BP 139/83; PULSE 80; RESP 17; O2SAT 98
[2024-11-11 18:20] LABS: Amorphous Sediment 2+ PHOS; Squamous Epithelial Cells - UA 0-5 SEEN /hpf (0-5); White Blood Cells 0-5 SEEN /hpf (0-5)
[2024-11-11 18:35] VITALS: BP 139/83; PULSE 80; RESP 17; TEMP 36.2; O2SAT 98
== END 2024-11-11 18:35 | disposition home or self-care (01) ==
PROVIDERS: Emergency Provider Emergency Medicine; Referring Provider Emergency Medicine; Visit Provider Emergency Medicine
DX: S39.012A Strain of muscle, fascia and tendon of lower back, initial encounter (principal); X58.XXXA Exposure to other specified factors, initial encounter; R63.1 Polydipsia; R35.81 Nocturnal polyuria; R03.0 Elevated blood-pressure reading, without diagnosis of hypertension; Z83.3 Family history of diabetes mellitus
CPT/HCPCS: 80048; 81001; 82962; 96360; 99282; A4216